=== PATIENT | female | born 1955 | race Caucasian/White ===

== ENCOUNTER → 2017-05-15 | Outpatient (CLI) | payer BC ==
[~2017-05-15] VITALS: Ht 162.6 cm; Wt 98.9 kg
== END | disposition home or self-care (01) ==
LOC: Rad HDHVI 09:21
PROVIDERS: ATTEND Internal Medicine Cardiovascular Disease
DX: I10 Essential (primary) hypertension (principal); I25.10 Atherosclerotic heart disease of native coronary artery without angina pectoris; E11.40 Type 2 diabetes mellitus with diabetic neuropathy, unspecified; E11.65 Type 2 diabetes mellitus with hyperglycemia; E78.00 Pure hypercholesterolemia, unspecified; R60.9 Edema, unspecified; Z95.0 Presence of cardiac pacemaker
CPT/HCPCS: 78452; 93017; 93306; 96374; A9500

== ENCOUNTER → 2018-05-21 | Outpatient (CLI) | payer BC ==
[~2018-05-21] VITALS: Ht 162.6 cm; Wt 101.2 kg
== END | disposition home or self-care (01) ==
LOC: Rad HDHVI 09:13
PROVIDERS: ATTEND Internal Medicine Cardiovascular Disease
DX: I49.5 Sick sinus syndrome (principal); I10 Essential (primary) hypertension; E11.40 Type 2 diabetes mellitus with diabetic neuropathy, unspecified; E11.65 Type 2 diabetes mellitus with hyperglycemia; E05.90 Thyrotoxicosis, unspecified without thyrotoxic crisis or storm
CPT/HCPCS: 78452; 93017; 93306; 96374; A9500

== ENCOUNTER → 2019-10-31 | Outpatient (CLI) | payer MEDICARE, BC | END | disposition home or self-care (01) | LOC: Rad HDHVI 08:10 | PROVIDERS: ATTEND Internal Medicine Cardiovascular Disease | DX: I10 Essential (primary) hypertension (principal); R07.9 Chest pain, unspecified; R06.02 Shortness of breath | CPT/HCPCS: 93306 ==

== ENCOUNTER → 2021-05-05 | Outpatient (CLI) | payer MEDICARE, BC | END | disposition home or self-care (01) | LOC: Rad HDHVI 13:21 | PROVIDERS: ATTEND Internal Medicine Cardiovascular Disease | DX: R06.02 Shortness of breath (principal); R00.2 Palpitations | CPT/HCPCS: 93306 ==

== ENCOUNTER → 2021-05-11 | Outpatient (CLI) | payer MEDICARE, BC ==
[~2021-05-11] VITALS: Ht 162.6 cm; Wt 90.7 kg
[~2021-05-11] MED LIST: ADENOSINE 76 MG in GIVE UN-DILUTED 0 ML IV ONE; ADENOSINE 90 MG/30 ML INJ IV ONE
== END | disposition home or self-care (01) ==
LOC: Rad HDHVI 11:20
PROVIDERS: ATTEND Internal Medicine Cardiovascular Disease
DX: I49.5 Sick sinus syndrome (principal); I10 Essential (primary) hypertension; E11.9 Type 2 diabetes mellitus without complications; E78.5 Hyperlipidemia, unspecified; R06.01 Orthopnea; Z82.49 Family history of ischemic heart disease and other diseases of the circulatory system; Z95.0 Presence of cardiac pacemaker
CPT/HCPCS: 78452; 93005; 96374; 96375; A9500; J0153

== ENCOUNTER → 2021-05-17 | Outpatient (CLI) | payer MEDICARE, BC | END | disposition home or self-care (01) | LOC: Rad HDHVI 10:30 | PROVIDERS: ATTEND Internal Medicine Cardiovascular Disease | DX: I11.0 Hypertensive heart disease with heart failure (principal); I50.33 Acute on chronic diastolic (congestive) heart failure | CPT/HCPCS: 93880 ==

== ENCOUNTER → 2021-06-14 | Outpatient (CLI) | payer MEDICARE, BC | END | disposition home or self-care (01) | LOC: LAB 09:16 | PROVIDERS: ATTEND Internal Medicine Gastroenterology | DX: R10.9 Unspecified abdominal pain (principal) | CPT/HCPCS: 36415; 82565 ==

== ENCOUNTER → 2021-06-17 | Day surgery (SDC) | payer MEDICARE, BC ==
[2021-06-14 10:32] LABS: Basophils # (auto) 0.2 10 ^3/uL (0-0.2); Basophils % (auto) 1.6 % (0.0-2.0); Eosinophils # (auto) 0.4 10 ^3/uL (0-0.8); Eosinophils % (auto) 4.4 % (0.0-7.0); Hematocrit 50.8 % (36.0-46.0); Hemoglobin 17.3 g/dL (12.2-16.2); Lymphocytes # (auto) 3.2 10 ^3/uL (0.4-5.4); Lymphocytes % (auto) 34.3 % (10.0-50.0); Mean Corpuscular Volume 93.9 fL (80.0-100.0); Monocytes # (auto) 0.6 10 ^3/uL (0-1.3); Monocytes % (auto) 6.5 % (0.0-12.0); Neutrophils # (auto) 4.9 10 ^3/uL (1.6-8.6); Neutrophils % (auto) 53.2 % (37.0-80.0); Nucleated Red Blood Cells % 0.1 %; Red Blood Cells 5.41 10^6/uL (4.0-5.20); Red Cell Distribution Width 14.3 % (11.8-14.3); White Blood Cell 9.3 10^3/uL (4.4-10.8)
[2021-06-14 10:41] LABS: Urine Bacteria FEW /hpf (None Seen); Urine Blood Negative /uL (Negative); Urine Specific Gravity 1.026 (1.001-1.035); Urine WBC 3 /hpf (0 - 5)
[2021-06-14 10:44] LABS: INR 0.95 (0.9-1.15); Partial Thromboplastin Time 25.7 sec (23.6-33.0)
[2021-06-14 12:04] LABS: Albumin 3.8 g/dL (3.4-5.0); Calcium 9.4 mg/dL (8.5-10.1); Potassium 3.8 mmol/L (3.5-5.1)
[2021-06-14 12:06] LABS: BUN/Creatinine Ratio 14.3
[2021-06-14 12:09] LABS: Bilirubin, Total 0.5 mg/dL (0.2-1.0); Total Protein 7.6 g/dL (6.4-8.2)
[~2021-06-17] MED LIST changes: -ADENOSINE 76 MG in GIVE UN-DILUTED 0 ML IV ONE; -ADENOSINE 90 MG/30 ML INJ IV ONE; +DexAMETHasone SOD PHOS 10MG/1ML VIAL INJ ONE; +HYDROmorphone HCL 2 MG/ML VL IV PRN; +LIDOCAINE VISCOUS 2% 15ML UD ONE; +METOCLOPRAMIDE HCL 5MG/ml INJ 2ml VIAL IV PRN; +MIDAZOLAM HCL 2MG/2ML 2ml VIAL (1mg/ml) ONE; +MIDAZOLAM HCL 5 MG/ML-1ML VIAL ONE; +MORPHINE SULFATE 4 MG/ML SYR/VIAL IV PRN; +ONDANSETRON HCL 4 MG/2 ML VIAL ONE; +PROPOFOL 10 MG/ML 20 ML IV ONE; +SODIUM CHLORIDE LOCK 10 ML ONE; +diphenhdrAMINE HCL 50 MG/1 ML VL ONE; +fentaNYL CITRATE 100 MCG/2 ML VL ONE
[2021-06-17 10:25] VITALS: BP 110/62
== END | disposition home or self-care (01) ==
LOC: GI 08:01
PROVIDERS: ATTEND Internal Medicine Gastroenterology
DX: R10.13 Epigastric pain (principal); K29.50 Unspecified chronic gastritis without bleeding; D12.5 Benign neoplasm of sigmoid colon; K62.1 Rectal polyp; I10 Essential (primary) hypertension; E11.9 Type 2 diabetes mellitus without complications; E03.9 Hypothyroidism, unspecified; J44.9 Chronic obstructive pulmonary disease, unspecified; Z90.89 Acquired absence of other organs; Z95.0 Presence of cardiac pacemaker; Z90.710 Acquired absence of both cervix and uterus; Z98.890 Other specified postprocedural states; Z79.899 Other long term (current) drug therapy; Z20.822 Contact with and (suspected) exposure to COVID-19; Z88.5 Allergy status to narcotic agent
CPT/HCPCS: 36415; 43239; 45380; 80053; 81001; 82962; 85025; 85610; 85730; 88305; 88342; J1100; J2250; J2405; J2704; J3010; J7030; U0003; 99153; G0500

== ENCOUNTER → 2021-12-20 | Outpatient (CLI) | payer MEDICARE, BC ==
[2021-12-20 12:47] LABS: Urine Blood Negative /uL (Negative); Urine Specific Gravity 1.026 (1.001-1.035)
[2021-12-20 13:03] LABS: Basophils # (auto) 0.1 10 ^3/uL (0-0.2); Eosinophils # (auto) 0.3 10 ^3/uL (0-0.8); Eosinophils % (auto) 3.2 % (0.0-7.0); Hematocrit 51.4 % (36.0-46.0); Hemoglobin 16.5 g/dL (12.2-16.2); Lymphocytes # (auto) 2.9 10 ^3/uL (0.4-5.4); Lymphocytes % (auto) 34.3 % (10.0-50.0); Mean Corpuscular Hemoglobin 30.9 pg (28.0-32.0); Mean Corpuscular Hgb Conc. 32.1 g/dL (32.0-36.0); Mean Corpuscular Volume 96.4 fL (80.0-100.0); Monocytes # (auto) 0.7 10 ^3/uL (0-1.3); Monocytes % (auto) 8.1 % (0.0-12.0); Neutrophils # (auto) 4.6 10 ^3/uL (1.6-8.6); Neutrophils % (auto) 53.4 % (37.0-80.0); Nucleated Red Blood Cells % 0.1 %; Red Blood Cells 5.33 10^6/uL (4.0-5.20); Red Cell Distribution Width 14.2 % (11.8-14.3); White Blood Cell 8.5 10^3/uL (4.4-10.8)
[2021-12-20 13:07] LABS: Albumin 3.7 g/dL (3.4-5.0); Calcium 9.6 mg/dL (8.5-10.1)
[2021-12-20 13:13] LABS: BUN/Creatinine Ratio 15.7; Bilirubin, Total 0.6 mg/dL (0.2-1.0); Total Protein 7.6 g/dL (6.4-8.2)
[2021-12-20 13:18] LABS: Free T4 (Free Thyroxine) 1.55 ng/dL (0.89-1.76)
== END | disposition home or self-care (01) ==
LOC: LAB 09:56
PROVIDERS: ATTEND Internal Medicine Cardiovascular Disease
DX: R00.2 Palpitations (principal); D51.3 Other dietary vitamin B12 deficiency anemia; D64.9 Anemia, unspecified; E11.9 Type 2 diabetes mellitus without complications; I10 Essential (primary) hypertension; E55.9 Vitamin D deficiency, unspecified; R53.1 Weakness; R30.0 Dysuria
CPT/HCPCS: 36415; 80053; 80061; 81003; 82607; 83036; 84439; 84443; 85025

== ENCOUNTER → 2022-02-01 | Outpatient (CLI) | payer MEDICARE, BC ==
[~2022-02-01] MED LIST changes: +ACYC1CAP23 PO; +BISA-60 PO; -DexAMETHasone SOD PHOS 10MG/1ML VIAL INJ ONE; +EMPA1TAB3 PO; +GABA100C9 PO; +GLIP10TA9 PO; +HYDR-4798 PO; -HYDROmorphone HCL 2 MG/ML VL IV PRN; +LEV150T PO; -LIDOCAINE VISCOUS 2% 15ML UD ONE; +METF-370 PO; -METOCLOPRAMIDE HCL 5MG/ml INJ 2ml VIAL IV PRN; -MIDAZOLAM HCL 2MG/2ML 2ml VIAL (1mg/ml) ONE; -MIDAZOLAM HCL 5 MG/ML-1ML VIAL ONE; -MORPHINE SULFATE 4 MG/ML SYR/VIAL IV PRN; -ONDANSETRON HCL 4 MG/2 ML VIAL ONE; +PANT40T PO; -PROPOFOL 10 MG/ML 20 ML IV ONE; +ROSU10TA16 PO; -SODIUM CHLORIDE LOCK 10 ML ONE; +SPIR100T4 PO; -diphenhdrAMINE HCL 50 MG/1 ML VL ONE; -fentaNYL CITRATE 100 MCG/2 ML VL ONE
[2022-02-01 09:05] VITALS: BP 134/80
[2022-02-01 09:19] VITALS: BP 143/70
[2022-02-01 10:13] LABS: Basophils # (auto) 0.1 10 ^3/uL (0-0.2); Basophils % (auto) 0.6 % (0.0-2.0); Eosinophils # (auto) 0.2 10 ^3/uL (0-0.8); Eosinophils % (auto) 2.4 % (0.0-7.0); Hematocrit 52.1 % (36.0-46.0); Hemoglobin 17.3 g/dL (12.2-16.2); Lymphocytes # (auto) 2.9 10 ^3/uL (0.4-5.4); Lymphocytes % (auto) 31.1 % (10.0-50.0); Mean Corpuscular Hemoglobin 31.7 pg (28.0-32.0); Mean Corpuscular Hgb Conc. 33.2 g/dL (32.0-36.0); Mean Corpuscular Volume 95.3 fL (80.0-100.0); Monocytes # (auto) 0.7 10 ^3/uL (0-1.3); Monocytes % (auto) 7.5 % (0.0-12.0); Neutrophils # (auto) 5.5 10 ^3/uL (1.6-8.6); Neutrophils % (auto) 58.4 % (37.0-80.0); Nucleated Red Blood Cells % 0.1 %; Red Blood Cells 5.47 10^6/uL (4.0-5.20); Red Cell Distribution Width 13.9 % (11.8-14.3); White Blood Cell 9.4 10^3/uL (4.4-10.8)
[2022-02-01 10:35] LABS: INR 0.92 (0.9-1.15); Partial Thromboplastin Time 26.9 sec (24.6-33.4)
[2022-02-01 10:36] LABS: BUN/Creatinine Ratio 15.2; Calcium 9.2 mg/dL (8.5-10.1); Potassium 3.6 mmol/L (3.5-5.1)
== END | disposition home or self-care (01) ==
LOC: Rad HDHVI 08:48
PROVIDERS: ATTEND Internal Medicine Cardiovascular Disease
DX: R06.02 Shortness of breath (principal)
CPT/HCPCS: 36415; 71046; 80048; 85025; 85610; 85730; 93005; G0463

== ENCOUNTER 2022-02-03 07:30 | Day surgery (SDC) | payer MEDICARE, BC ==
[~2022-02-03] VITALS: Ht 162.6 cm; Wt 93.4 kg
[2022-02-03] MEDS ORDERED: fentaNYL CITRATE 100 MCG/2 ML VL ONE (09:08)
[2022-02-03] MEDS ORDERED: MIDAZOLAM HCL 2MG/2ML 2ml VIAL (1mg/ml) ONE (09:08)
[2022-02-03] MEDS ORDERED: LIDOCAINE 2%HCL (LOCAL ANESTH.) INJ 20ML MDV ONE (09:18)
[2022-02-03] MEDS ORDERED: levoFLOXacin 500MG 100 ML IV ONE ×2 (09:18→09:22)
== END 2022-02-03 11:12 | disposition home or self-care (01) ==
LOC: CATH 07:30
PROVIDERS: ATTEND Internal Medicine Cardiovascular Disease
DX: Z45.010 Encounter for checking and testing of cardiac pacemaker pulse generator [battery] (principal); Z88.0 Allergy status to penicillin; Z88.1 Allergy status to other antibiotic agents; Z91.040 Latex allergy status; I10 Essential (primary) hypertension; Z79.899 Other long term (current) drug therapy; Z20.822 Contact with and (suspected) exposure to COVID-19
CPT/HCPCS: 33228; 93005; C1785; J1956; J2250; J3010; J7040; U0003; 99152

== ENCOUNTER → 2022-06-30 | Outpatient (CLI) | payer MEDICARE, BC | END | disposition home or self-care (01) | LOC: Rad HDHVI 09:38 | PROVIDERS: ATTEND Internal Medicine Cardiovascular Disease | DX: M25.78 Osteophyte, vertebrae (principal); M51.37 Other intervertebral disc degeneration, lumbosacral region; K42.9 Umbilical hernia without obstruction or gangrene; I70.0 Atherosclerosis of aorta; M16.0 Bilateral primary osteoarthritis of hip; M46.1 Sacroiliitis, not elsewhere classified; Z90.710 Acquired absence of both cervix and uterus | CPT/HCPCS: 72131; 72192 ==

== ENCOUNTER → 2023-05-02 | Outpatient (CLI) | payer MEDICARE, BC ==
[~2023-05-02] MED LIST changes: -ACYC1CAP23 PO; +ACYC200C22 PO; +GABA-1308 PO; -GABA100C9 PO
== END | disposition home or self-care (01) ==
LOC: Rad HDHVI 10:06
PROVIDERS: ATTEND Internal Medicine Cardiovascular Disease
DX: I08.1 Rheumatic disorders of both mitral and tricuspid valves (principal); E78.5 Hyperlipidemia, unspecified
CPT/HCPCS: 93306

== ENCOUNTER → 2023-05-05 | Outpatient (CLI) | payer MEDICARE, BC ==
[2023-05-05 09:10] VITALS: BP 166/96; PULSE 101; RESP 20; O2SAT 93
[2023-05-05] MEDS: ONDANSETRON HCL 4 MG/2 ML VIAL ONE (09:16)
[2023-05-05] MEDS: ONDANSETRON HCL 4 MG/2 ML VIAL IV ONE (09:22)
[2023-05-05 09:32] VITALS: BP 127/77; PULSE 76; RESP 20; O2SAT 93
== END | disposition home or self-care (01) ==
LOC: Rad HDHVI 08:40
PROVIDERS: ATTEND Internal Medicine Cardiovascular Disease
DX: I10 Essential (primary) hypertension (principal); E11.9 Type 2 diabetes mellitus without complications
CPT/HCPCS: 96374; G0463; J2405

== ENCOUNTER → 2023-05-19 | Outpatient (CLI) | payer MEDICARE, BC ==
[~2023-05-19] VITALS: Ht 160 cm; Wt 89.4 kg
[~2023-05-19] MED LIST changes: +ADENOSINE 75 MG in GIVE UN-DILUTED 0 ML IV ONE; +ADENOSINE 90 MG/30 ML INJ IV ONE
== END | disposition home or self-care (01) ==
LOC: Rad HDHVI 08:04
PROVIDERS: ATTEND Internal Medicine Cardiovascular Disease
DX: I25.10 Atherosclerotic heart disease of native coronary artery without angina pectoris (principal); R42 Dizziness and giddiness; R07.9 Chest pain, unspecified; R06.02 Shortness of breath; I10 Essential (primary) hypertension; I49.5 Sick sinus syndrome; E78.00 Pure hypercholesterolemia, unspecified; E11.9 Type 2 diabetes mellitus without complications; Z95.0 Presence of cardiac pacemaker; Z82.49 Family history of ischemic heart disease and other diseases of the circulatory system; Z79.84 Long term (current) use of oral hypoglycemic drugs; Z79.899 Other long term (current) drug therapy
CPT/HCPCS: 78452; 93005; 96374; 96375; A9500; J0153

== ENCOUNTER → 2024-04-16 | Outpatient (CLI) | payer MEDICARE, BC ==
[~2024-04-16] MED LIST changes: -ADENOSINE 75 MG in GIVE UN-DILUTED 0 ML IV ONE; -ADENOSINE 90 MG/30 ML INJ IV ONE
== END | disposition home or self-care (01) ==
LOC: Rad HDHVI 10:15
PROVIDERS: ATTEND Internal Medicine Cardiovascular Disease
DX: I11.0 Hypertensive heart disease with heart failure (principal); I50.1 Left ventricular failure, unspecified
CPT/HCPCS: 93306

== ENCOUNTER 2024-12-23 09:32 | Outpatient (CLI) | payer MEDICARE, BC ==
[~2024-12-23] VITALS: Ht 160 cm; Wt 71.7 kg
[2024-12-23] MEDS ORDERED: ADENOSINE 90 MG/30 ML INJ IV ONE (09:55)
[2024-12-23] MEDS ORDERED: ADENOSINE 60 MG in GIVE UN-DILUTED 0 ML IV ONE (11:30)
== END 2024-12-23 17:00 | disposition home or self-care (01) ==
LOC: Rad HDHVI 09:32
PROVIDERS: ATTEND Internal Medicine Cardiovascular Disease
DX: I10 Essential (primary) hypertension (principal); I49.5 Sick sinus syndrome; R06.02 Shortness of breath; R07.89 Other chest pain; E11.40 Type 2 diabetes mellitus with diabetic neuropathy, unspecified; Z95.0 Presence of cardiac pacemaker; Z82.49 Family history of ischemic heart disease and other diseases of the circulatory system
CPT/HCPCS: 78452; 93017; A9500; J0153

== ENCOUNTER 2024-12-25 10:33 | Outpatient (CLI) | payer MEDICARE, BC | END 2024-12-25 17:00 | disposition home or self-care (01) | LOC: Rad HDHVI 10:33 | PROVIDERS: ATTEND Internal Medicine Cardiovascular Disease | DX: I49.5 Sick sinus syndrome (principal) | CPT/HCPCS: 93880 ==